=== PATIENT | male | born 2000 | race Caucasian/White ===

== ENCOUNTER 2024-03-06 12:44 | Emergency (ER) | payer OTHER ==
--- NOTE | 2024-03-06 13:05 | ED ---
Chest Pain HPI - General Source: patient, RN notes reviewed Mode of arrival: ambulatory Limitations: no limitations - History of Present Illness MD Complaint: chest pain <Nancy Melendez - Last Filed: 03/06/24 13:03> <Sid Amaya - Last Filed: 03/09/24 19:58> - General Chief Complaint: Chest Pain Stated Complaint: Chest pain Time Seen by Provider: 03/06/24 13:00 - History of Present Illness Initial Comments: Quick Note: This is a 24-year-old male who presents to the emergency department for chest pain. States that it started a few days ago. Pain is in the left chest and left upper quadrant with radiation into the back. Pain is sharp and worse if he tries to breathe. Denies any nausea or vomiting. (Nancy Melendez) 24-year-old male presenting with chief complaint of chest pain. Patient states that the symptoms started earlier this week. Located in the left chest and in the left upper quadrant. This is a sharp pain. Patient reports he has recently been very stressed, his mother earlier this week and he is caring for his siblings. No nausea or vomiting. No lower extremity swelling. No recent surgery or travel. No history of DVT. No difficulty breathing. No current cough, congestion, sore throat, fever, chills. (Sid Amaya) - Related Data Home Medications Medication Instructions Recorded Confirmed ARIPiprazole [Abilify] 2 mg PO DAILY 03/22/14 03/22/14 Albuterol Inhaler [Ventolin 1 - 2 puff INHALATION Q6HR PRN 03/22/14 03/22/14 Inhaler] FLUoxetine HCL [PROzac] 20 mg PO DAILY 03/22/14 03/22/14 Montelukast [Singulair] 10 mg PO DAILY 03/22/14 03/22/14 Q-Donte 2 puff INHALATION BID 03/22/14 03/22/14 Allergies Allergy/AdvReac Type Severity Reaction Status Date / Time No Known Allergies Allergy Verified 03/06/24 13:44 Review of Systems ROS Other: All systems not noted in ROS Statement are negative. <Nancy Melendez - Last Filed: 03/06/24 13:03> ROS Other: All systems not noted in ROS Statement are negative. <Sid Amaya - Last Filed: 03/09/24 19:58> ROS Statement: Those systems with pertinent positive or pertinent negative responses have been documented in the HPI. Past Medical History Past Medical History: Asthma History of Any Multi-Drug Resistant Organisms: None Reported Past Surgical History: No Surgical Hx Reported Past Psychological History: Anxiety, Depression, PTSD Past Alcohol Use History: None Reported Past Drug Use History: Marijuana <Nancy Melendez - Last Filed: 03/06/24 13:03> General Exam <Nancy Melendez - Last Filed: 03/06/24 13:03> General appearance: alert, in no apparent distress Head exam: Present: atraumatic, normocephalic, normal inspection Eye exam: Present: normal appearance Neck exam: Present: normal inspection. Absent: meningismus Respiratory exam: Present: normal lung sounds bilaterally. Absent: respiratory distress, wheezes, rales, rhonchi, stridor Cardiovascular Exam: Present: regular rate, normal rhythm, normal heart sounds. Absent: systolic murmur, diastolic murmur, rubs, gallop, clicks Extremities exam: Absent: pedal edema Neurological exam: Present: alert, oriented X3 Psychiatric exam: Present: normal affect, normal mood Skin exam: Present: warm, dry <Sid Amaya - Last Filed: 03/09/24 19:58> - General Exam Comments Initial Comments: Visual Physical Exam Vital signs reviewed General: Well-appearing, nontoxic, no acute distress. Head: Normocephalic, atraumatic Eyes: PERRLA, EOMI ENT: Airway patent Chest: Nonlabored breathing Skin: No visual rash, normal skin tone Neuro: Alert and oriented 3 Musculoskeletal: No gross abnormalities (Nancy Melendez) Course Vital Signs 03/06/24 03/06/24 13:45 16:57 Temperature 98.5 F Pulse Rate 91 74 Respiratory 18 20 Rate Blood Pressure 126/84 121/75 O2 Sat by Pulse 97 99 Oximetry Chest Pain [facility] <Nancy Melendez - Last Filed: 03/06/24 13:03> <Sid Amaya - Last Filed: 03/09/24 19:58> - MDM I performed the QuickNote portion of this chart. Signed Nancy Vogley, Nancy Estrada) Was pt. sent in by a medical professional or institution (, EMI, CHARGE AUDITOR, urgent care, hospital, or residential...) When possible be specific @ -No Did you speak to anyone other than the patient for history (EMS, parent, family, police, friend...)? What history was obtained from this source @ -No Did you review nursing and triage notes (agree or disagree)? Why? @ -I reviewed and agree with nursing and triage notes Were old charts reviewed (outside hosp., previous admission, EMS record, old EKG, old radiological studies, urgent care reports/EKG's, residential records)? Report findings @ -No old charts were reviewed Differential Diagnosis (chest pain, altered mental status, abdominal pain women, abdominal pain men, vaginal bleeding, weakness, fever, dyspnea, syncope, headache, dizziness, GI bleed, back pain, seizure, CVA, palpatations, mental health, musculoskeletal)? @ -MDM Differential Chest Pain: Stable Angina, Unstable Angina, STEMI, NSTEMI Aortic Dissection, Pneumothorax, Musculoskeletal, Esophageal Spasm GERD, Cholecystitis, Pancreatitis, Zoster This is not meant to be an all-inclusive list. EKG interpreted by me (3pts min.). @ -EKG shows sinus rhythm with sinus arrhythmia. Ventricular rate 79. MT interval 128. QRS 100. QT 339. QTc 374. X-rays interpreted by me (1pt min.). @ -Chest x-ray shows no acute process CT interpreted by me (1pt min.). @ -None done U/S interpreted by me (1pt. min.). @ -None done What testing was considered but not performed or refused? (CT, X-rays, U/S, labs)? Why? @ -None What meds were considered but not given or refused? Why? @ -None Did you discuss the management of the patient with other professionals (professionals i.e. EMI Holden, CHARGE AUDITOR, lab, RT, psych nurse, social media project manager, aircraft landing gear inspector, teacher, chief fundraising officer, family caseworker)? Give summary @ -No Was smoking cessation discussed for >3mins.? @ -No Was critical care preformed (if so, how long)? @ -No Were there social determinants of health that impacted care today? How? (Homelessness, low income, unemployed, alcoholism, drug addiction, transportation, low edu. Level, literacy, decrease access to med. care, [place] [facility], rehab)? @ -No Was there de-escalation of care discussed even if they declined (Discuss DNR or withdrawal of care, Hospice)? DNR status @ -No What co-morbidities impacted this encounter? (DM, HTN, Smoking, COPD, CAD, Cancer, CVA, ARF, Chemo, Hep., AIDS, mental health diagnosis, sleep apnea, morbid obesity)? @ -None Was patient admitted / discharged? Hospital course, mention meds given and route, prescriptions, significant lab abnormalities, going to OR and other pertinent info. @ -24-year-old male presenting with chief complaint of chest pain. Patient has recently been very stressed with the recent passing of his mother. Workup is initiated by triage. Studies have returned showing no obvious acute process. D-dimer 0.18 and negative troponin. Chest x-ray shows no acute process and EKG shows sinus rhythm with sinus arrhythmia. Patient reports some improvement in his pain. He is requesting discharge. Vital signs are stable. Patient is educated on today's findings and follow-up instructions. Follow-up with PCP. Report back to ER with any new or worsening symptoms. Discussed return parameters and answered all questions. Patient conveyed verbal understanding and agreed to the plan. I discussed this case in detail with my attending Dr. Brennan Undiagnosed new problem with uncertain prognosis? @ -No Drug Therapy requiring intensive monitoring for toxicity (Heparin, Nitro, Insulin, Cardizem)? @ -No Were any procedures done? @ -No Diagnosis/symptom? @ -Chest pain Acute, or Chronic, or Acute on Chronic? @ -Acute Uncomplicated (without systemic symptoms) or Complicated (systemic symptoms)? @ -Uncomplicated Side effects of treatment? @ -No Exacerbation, Progression, or Severe Exacerbation? @ -No Poses a threat to life or bodily function? How? (Chest pain, [place], [place], pneumonia, PE, COPD, DKA, ARF, appy, cholecystitis, CVA, Diverticulitis, Homicidal, Suicidal, threat to staff... and all critical care pts) @ -Low likelihood (Sid Amaya) Disposition <Nancy Melendez - Last Filed: 03/06/24 13:03> Is patient prescribed a controlled substance at d/c from ED?: No Time of Disposition: 16:53 <Sid Amaya - Last Filed: 03/09/24 19:58> Clinical Impression: Chest pain Disposition: HOME SELF-CARE Condition: Fair Instructions (If sedation given, give patient instructions): Chest Pain (ED) Additional Instructions: Follow-up with PCP. Report back to ER with any new or worsening symptoms. Referrals: Heaven García DO [Primary Care Provider] - 1-2 days
[2024-03-06 13:47] VITALS: TEMP 98.5
--- NOTE | 2024-03-06 14:06 | XR ---
EXAMINATION TYPE: XR chest 2V DATE OF EXAM: 03/06/2024 CLINICAL HISTORY: Chest Pain TECHNIQUE: Frontal and lateral views of the chest are obtained. COMPARISON: None FINDINGS: There is no focal air space opacity, pleural effusion, or pneumothorax seen. The cardiac silhouette size is within normal limits. The osseous structures are intact. IMPRESSION: No acute cardiopulmonary process. [facility], , 03/06/2024 2:03 PM
[2024-03-06 15:01] LABS: Basophils % (A) 0 %; Eosinophils # (A) 0.1 k/uL (0-0.7); Eosinophils % (A) 2 %; HCT 49.4 % (39.0-53.0); HGB 17.1 gm/dL (13.0-17.5); Lymphocytes # (A) 1.7 k/uL (1.0-4.8); Lymphocytes % (A) 22 %; MCH 30.6 pg (25.0-35.0); MCHC 34.5 g/dL (31.0-37.0); MCV 88.4 fL (80.0-100.0); Mean Platelet Volume 7.8; Monocytes # (A) 0.5 k/uL (0-1.0); Monocytes % (A) 6 %; Neutrophils # (A) 5.5 k/uL (1.3-7.7); Neutrophils % (A) 70 %; Platelet Count 228 k/uL (150-450); RBC 5.59 m/uL (4.30-5.90); RDW 12.7 % (11.5-15.5); WBC 7.9 k/uL (3.8-10.6)
[2024-03-06 15:26] LABS: ALT 22 U/L (4-49); AST 28 U/L (17-59); African American GFR (CKD) >90 (>60 ml/min/1.73 sqM); Alkaline Phosphatase 78 U/L (38-126); Anion Gap 10 mmol/L; Blood Urea Nitrogen 14 mg/dL (9-20); Calcium 9.9 mg/dL (8.4-10.2); Carbon Dioxide 23 mmol/L (22-30); Chloride 104 mmol/L (98-107); Glucose 92 mg/dL (74-99); INR 1.1 (<1.2); Lipase 100 U/L (23-300); Non-African American GFR(CKD) >90 (>60 ml/min/1.73 sqM); Partial Thromboplastin Time 28.2 sec (22.0-30.0); Potassium 3.7 mmol/L (3.5-5.1); Prothrombin Time 11.8 sec (10.0-12.5); Sodium 137 mmol/L (137-145); Total Bilirubin 1.4 mg/dL (0.2-1.3); Total Protein 7.9 g/dL (6.3-8.2)
[2024-03-06 16:59] VITALS: BP 121/75; PULSE 74; RESP 20
== END 2024-03-06 16:58 | disposition home or self-care (01) ==
LOC: EC 12:44
DX: I49.8 Other specified cardiac arrhythmias (principal)
CPT/HCPCS: 36415; 71046; 80053; 83690; 83735; 84484; 85025; 85379; 85610; 85730; 93005; 99285

== ENCOUNTER 2024-03-09 22:56 | Emergency (ER) | payer OTHER ==
[2024-03-09] MEDS ORDERED: ALBUTEROL NEBULIZED (CONC) 10 MG, SODIUM CHLORIDE 0.9% NEBULIZ 3 ML INHALATION ONE (23:01)
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
[2024-03-09 23:05] VITALS: TEMP 97.6
[2024-03-09] MEDS: ALBUTEROL NEB (CONC) 2.5 MG/0.5 ML INHALATION STA (23:18)
[2024-03-09] MEDS: IPRATROPIUM 0.5 MG/2.5 ML NEBU INHALATION STA (23:18)
[2024-03-09] MEDS: dexAMETHasone 4 MG TAB PO STA (23:21)
[2024-03-09] MEDS: ALBUTEROL NEBULIZED 2.5 MG/3 ML INHALATION STA (23:26)
[2024-03-09] MEDS: BUDESONIDE 1 MG/2 ML NEBU INHALATION STA (23:26)
--- NOTE | 2024-03-09 23:28 | XR ---
EXAMINATION TYPE: XR chest 1V portable DATE OF EXAM: 03/09/2024 COMPARISON: Chest x-ray 3 days earlier HISTORY: Asthma exacerbation. TECHNIQUE: 2 upright frontal views of the chest are obtained. FINDINGS: There is no new suspicious focal air space opacity, pleural effusion, or pneumothorax seen . The cardiac silhouette size is stable and within normal limits. The osseous structures are intac t. IMPRESSION: No acute process. No significant change from recent study [facility], , 03/09/2024 11:26 PM
[2024-03-10 00:11] VITALS: BP 131/65; PULSE 99; RESP 18
== END 2024-03-10 00:25 | disposition home or self-care (01) ==
LOC: EC 22:56
DX: J45.901 Unspecified asthma with (acute) exacerbation (principal); F17.290 Nicotine dependence, other tobacco product, uncomplicated
CPT/HCPCS: 94640 ×2; 71045; 99284; J8540